=== PATIENT | male | born 1955 | race Caucasian/White ===

== ENCOUNTER 2016-07-30 10:37 | Emergency (ER) | payer BC ==
[2016-07-30] MEDS ORDERED: SODIUM CHLORIDE 0.9% 1,000 ML ONE (11:07)
== END 2016-07-30 15:06 | disposition home or self-care (01) ==
LOC: ER 10:37
CPT/HCPCS: 36415; 71010; 71260; 76705; 80053; 81003; 82553; 83690; 84484; 85025; 85379; 93005; 96360; 99223